=== PATIENT | male | born 1980 | race Caucasian/White ===

== ENCOUNTER 2021-01-02 00:51 | Emergency (ER) | payer MEDICAID ==
[~2021-01-02] VITALS: Ht 177.8 cm; Wt 72.6 kg
[2021-01-02 01:52] LABS: BASOPHILS % (AUTO) 0 % (0-10); BILIRUBIN,URINE NEGATIVE (NEGATIVE); CLARITY,URINE CLEAR; COLOR,URINE YELLOW; EOSINOPHILS # (AUTO) 0.1 10^3/uL (0.0-0.3); EOSINOPHILS % (AUTO) 1 % (0-10); GLUCOSE, URINE (UA) 1+ (NEGATIVE); HEMATOCRIT 46 % (40-54); HEMOGLOBIN 14.8 g/dL (13.3-17.7); KETONES,URINE NEGATIVE (NEGATIVE); LEUKOCYTE ESTERASE ,URINE NEGATIVE (NEGATIVE); LYMPHOCYTES # (AUTO) 3.3 10^3/uL (1.0-4.0); LYMPHOCYTES % (AUTO) 27 % (12-44); MEAN CORPUSCULAR HEMOGLOBIN 27 pg (25-34); MEAN CORPUSCULAR HGB CONC 33 g/dL (32-36); MEAN CORPUSCULAR VOLUME 83 fL (80-99); MEAN PLATELET VOLUME 10.6 fL (9.0-12.2); MONOCYTES # (AUTO) 1.1 10^3/uL (0.0-1.0); MONOCYTES % (AUTO) 9 % (0-12); NEUTROPHILS # (AUTO) 7.5 10^3/uL (1.8-7.8); NEUTROPHILS % (AUTO) 62 % (42-75); NITRITE,URINE NEGATIVE (NEGATIVE); PH,URINE 5.5 (5-9); PLATELET COUNT 330 10^3/uL (130-400); PROTEIN,URINE NEGATIVE (NEGATIVE); WHITE BLOOD COUNT 12.1 10^3/uL (4.3-11.0)
--- NOTE | 2021-01-02 01:55 | ED Back Pain ---
General Chief Complaint: Back Problems Stated Complaint: PAIN ON RT SIDE OF BACK Nursing Triage Note: TO ED VIA POV AND AMBULATORY TO ROOM 6 WITH C/O RIGHT FLANK PAIN THAT STARTED AT 2200 TONGIHT. Source of Information: Patient Exam Limitations: No Limitations (GEORGE MANN STUDENT) History of Present Illness Date Seen by Provider: Jan 02, 2021 Time Seen by Provider: 01:20 Initial Comments Deyvi is a 40 yo M here with a cc of R sided back pain. This pain started yesterday afternoon while he was laying in bed. Pain is described as a constant, pinching pain, rated as 10/10. Pain has not wavered in intensity since onset. Denies any radiation of pain. Has had this pain before, 2 years ago when he had a kidney stone. Pt is having nausea. Denies vomiting, diarrhea, constipation, hematuria, dysuria and frequency. Pt denies any trauma to area. Location: Paraspinous Muscles (T10-T11 area) Timing/Duration: 1 Day Severity: Moderate Pain/Injury Location: Back Radiation: Other (none) Method of Injury: Unknown Modifying Factors: Worse With Movement Associated Symptoms: No fever, No weakness (GEORGE MANN STUDENT) Allergies and Home Medications Allergies Coded Allergies: No Known Drug Allergies (Unverified , 01/02/21) Patient Home Medication List Home Medication List Reviewed: Yes (KARLI HAN MD) Cyclobenzaprine HCl (Cyclobenzaprine HCl) 10 Mg Tablet, 10 MG PO Q8H PRN for SPASMS Prescribed by: KARLI GILMORE on 01/02/21 0320 Hydrocodone/Acetaminophen (Hydrocodone-Acetamin 5-325 mg) 1 Each Tablet, 1 TAB PO Q4H PRN for PAIN-BREAKTHROUGH Prescribed by: KARLI GILMORE on 01/02/21 0323 Ondansetron (Ondansetron Odt) 4 Mg Tab.rapdis, 4 MG SL Q4H PRN for NAUSEA/VOMITING Prescribed by: KARLI GILMORE on 01/02/21 0320 Review of Systems Constitutional: No chills, No diaphoresis, No fever EENTM: No blurred vision Respiratory: No cough, No short of breath Cardiovascular: No chest pain, No palpitations Gastrointestinal: No abdominal pain, No constipation, No diarrhea; nausea; No vomiting Genitourinary: No dysuria, No frequency, No hematuria, No pain Musculoskeletal: back pain (R sided, T10-T11 area) Skin: change in color; No lesions; other Psychiatric/Neurological: No Symptoms Reported (GEORGE MANN) Past Gyqoqyc-Tzhqhk-Awhrax Hx Patient Social History Tobacco Use?: No Substance use?: No Alcohol Use?: No (GEORGE MANN) Past Medical History Surgery/Hospitalization HX: TO ED VIA POV AND AMBULATORY TO ROOM 6 WITH C/O RIGHT FLANK PAIN. STATES TROUBLE WITH URINATION. HX OF KIDNEY STONE 2 YEARS AGO. Surgeries: Yes Appendectomy Respiratory: No Cardiac: No Endocrine: Yes Diabetes, Non-Insulin dep Psychosocial: No (GEORGE MANN) Family Medical History No Pertinent Family Hx (GEORGE MANN) Physical Exam Vital Signs Vital Signs - First Documented 01/02/21 00:57 Temp 35.8 Pulse 61 Resp 18 B/P (MAP) 162/74 (103) Pulse Ox 99 O2 Delivery Room Air (KARLI HAN MD) Vital Signs Capillary Refill : Less Than 3 Seconds (GEORGE MANN) Height, Weight, BMI Height: '" Weight: lbs. oz. kg; 22.00 BMI Method: General Appearance: WD/WN, Moderate Distress HEENT: No Scleral Icterus (R) Neck: Full Range of Motion, Non Tender; No Lymphadenopathy (L), No Lymphadenopathy (R) Cardiovascular: Regular Rate, Rhythm, No Murmur, Normal Peripheral Pulses Respiratory: Chest Non Tender, Lungs Clear Gastrointestinal: Normal Bowel Sounds, Non Tender, Soft Back: CVA Tenderness (R), Other (no ecchymosis, scars, or cuts over area of pain) Extremity: Normal Capillary Refill Neurologic/Psychiatric: Alert, Oriented x3, Normal Mood/Affect Skin: Normal Color, Warm/Dry; No Diaphoresis, No Ecchymosis, No Pallor (GEORGE MANN) Progress/Results/Core Measures Results/Orders Lab Results Laboratory Tests Test 01/02/21 01:04 Range/Units White Blood Count 12.1 H 4.3-11.0 10^3/uL Red Blood Count 5.46 4.30-5.52 10^6/uL Hemoglobin 14.8 13.3-17.7 g/dL Hematocrit 46 40-54 % Mean Corpuscular Volume 83 80-99 fL Mean Corpuscular Hemoglobin 27 25-34 pg Mean Corpuscular Hemoglobin Concent 33 32-36 g/dL Red Cell Distribution Width 12.7 10.0-14.5 % Platelet Count 330 130-400 10^3/uL Mean Platelet Volume 10.6 9.0-12.2 fL Immature Granulocyte % (Auto) 0 % Neutrophils (%) (Auto) 62 42-75 % Lymphocytes (%) (Auto) 27 12-44 % Monocytes (%) (Auto) 9 0-12 % Eosinophils (%) (Auto) 1 0-10 % Basophils (%) (Auto) 0 0-10 % Neutrophils # (Auto) 7.5 1.8-7.8 10^3/uL Lymphocytes # (Auto) 3.3 1.0-4.0 10^3/uL Monocytes # (Auto) 1.1 H 0.0-1.0 10^3/uL Eosinophils # (Auto) 0.1 0.0-0.3 10^3/uL Basophils # (Auto) 0.0 0.0-0.1 10^3/uL Immature Granulocyte # (Auto) 0.1 0.0-0.1 10^3/uL Urine Color YELLOW Urine Clarity CLEAR Urine pH 5.5 5-9 Urine Specific [place] >=1.030 1.016-1.022 Urine Protein NEGATIVE NEGATIVE Urine Glucose (UA) 1+ H NEGATIVE Urine Ketones NEGATIVE NEGATIVE Urine Nitrite NEGATIVE NEGATIVE Urine Bilirubin NEGATIVE NEGATIVE Urine Urobilinogen 0.2 < = 1.0 MG/DL Urine Leukocyte Esterase NEGATIVE NEGATIVE Urine RBC (Auto) NEGATIVE NEGATIVE Urine RBC RARE /HPF Urine WBC 0-2 /HPF Urine Crystals NONE /LPF Urine Bacteria TRACE /HPF Urine Casts NONE /LPF Urine Mucus MODERATE H /LPF Urine Culture Indicated NO Sodium Level 134 L 135-145 MMOL/L Potassium Level 3.5 L 3.6-5.0 MMOL/L Chloride Level 98 98-107 MMOL/L Carbon Dioxide Level 25 21-32 MMOL/L Anion Gap 11 5-14 MMOL/L Blood Urea Nitrogen 15 7-18 MG/DL Creatinine 1.07 0.60-1.30 MG/DL Estimat Glomerular Filtration Rate 76 BUN/Creatinine Ratio 14 Glucose Level 227 H 70-105 MG/DL Calcium Level 9.9 8.5-10.1 MG/DL Corrected Calcium 8.5-10.1 MG/DL Total Bilirubin 0.9 0.1-1.0 MG/DL Aspartate Amino Transf (AST/SGOT) 23 5-34 U/L Alanine Aminotransferase (ALT/SGPT) 38 0-55 U/L Alkaline Phosphatase 94 40-136 U/L Total Protein 7.8 6.4-8.2 GM/DL Albumin 4.7 H 3.2-4.5 GM/DL (KARLI HAN MD) My Orders Orders - KARLI HAN MD Cbc With Automated Diff (01/02/21 01:46) Comprehensive Metabolic Panel (01/02/21 01:46) Ua Culture If Indicated (01/02/21 01:46) Ed Iv/Invasive Line Start (01/02/21 01:46) Lactated Ringers (Lr 1000 Ml Iv Solution (01/02/21 02:00) Ketorolac Injection (Toradol Injection) (01/02/21 02:00) Ondansetron Injection (Zofran Injectio (01/02/21 02:00) Orphenadrine Inj (Ed Only) (Norflex Inje (01/02/21 02:30) Hydrocodone/Apap 5/325 Tablet (Lortab 5 (01/02/21 03:15) (KARLI HAN MD) Medications Given in ED (KARLI HAN MD) Vital Signs/I&O 01/02/21 01/02/21 00:57 03:35 Temp 35.8 35.8 Pulse 61 67 Resp 18 16 B/P (MAP) 162/74 (103) 148/67 Pulse Ox 99 99 O2 Delivery Room Air Room Air (KARLI HAN MD) Blood Pressure Mean: 103 Progress Progress Note : Progress Note Patient was treated with IV fluids, Toradol, and Zofran. Exam seem to be more consistent with musculoskeletal pain with tension and tenderness in the paraspinous muscles of the right lower back. There was no blood in his urine. Patient was offered KUB or CT scan for further evaluation of ureteral stone, es pecially since Norflex did not improve the pain at all. After discussion of risks and benefits, patient decides to treat symptomatically and not have any imaging performed at this time. He was discharged with medications. See discharge instructions. (KARLI HAN MD) Departure Impression Primary Impression: Back pain Qualified Codes: M54.5 - Low back pain Disposition: 01 HOME, SELF-CARE Condition: Improved Departure-Patient Inst. Decision time for Depature: 03:08 (KARLI HAN MD) Referrals: NO,LOCAL PHYSICIAN (PCP/Family) Primary Care Physician Patient Instructions: Kidney Stones in Adults, Low Back Pain (DC) Add. Discharge Instructions: Drink plenty of clear liquids to stay well-hydrated. Strain your urine and keep any stones collected to bring to your follow-up appointment. Follow-up at [facility] (the [facility]) as soon as possible.. For primary pain control you may take ibuprofen up to 600 mg every 6 hours as needed. Add the hydrocodone as prescribed for pain not controlled by ibuprofen. Use Zofran as prescribed for nausea and vomiting. For muscle tension or spasm you may use the cyclobenzaprine as prescribed. Return to care if you have worsening symptoms or symptoms not controlled by your medications. Call with questions or concerns. All discharge instructions reviewed with patient and/or family. Voiced understanding. Scripts Ondansetron (Ondansetron Odt) 4 Mg Tab.rapdis 4 MG SL Q4H PRN for NAUSEA/VOMITING, #10 TAB Prov: KARLI HAN MD 01/02/21 Cyclobenzaprine HCl (Cyclobenzaprine HCl) 10 Mg Tablet 10 MG PO Q8H PRN for SPASMS, #10 TAB 0 Refills Prov: KARLI HAN MD 01/02/21 Hydrocodone/Acetaminophen (Hydrocodone-Acetamin 5-325 mg) 1 Each Tablet 1 TAB PO Q4H PRN for PAIN-BREAKTHROUGH, #10 TAB Prov: KARLI HAN MD 01/02/21 Medical Student Attestation and Attending Note: I have personally interviewed and examined this patient along with George Mann MS4. I have reviewed student documentation including history, physical, and assessments. I agree with the documentation except where otherwise noted. Exam: General: Alert, oriented, no acute distress, well developed HEENT: Normocephalic and atraumatic Heart: Regular rate and rhythm without murmur Lungs: Clear to auscultation bilaterally with normal effort Abdomen: Soft, nontender, nondistended, normal bowel sounds Neuropsych: Alert, oriented, no focal deficits Skin: Warm and dry without rashes Back: Tenderness in the mid lumbar region of the paraspinous muscles on the right (KARLI HAN MD) GEORGE MANN MED STUDENT Jan 02, 2021 01:55 KARLI HAN MD Jan 02, 2021 03:16
[2021-01-02 01:59] LABS: BACTERIA,URINE TRACE /HPF; RBC,URINE RARE /HPF; WBC,URINE 0-2 /HPF
[2021-01-02] MEDS ORDERED: KETOROLAC 30 MG/ML VIAL IVP ONE (02:00)
[2021-01-02] MEDS ORDERED: LACTATED RINGERS 1,000 ML IV ONE (02:00)
[2021-01-02] MEDS ORDERED: ONDANSETRON 4 MG/2 ML (SDV) Z0FRAN IVP ONE (02:00)
[2021-01-02 02:04] LABS: ALBUMIN 4.7 GM/DL (3.2-4.5); CHLORIDE 98 MMOL/L (98-107); POTASSIUM 3.5 MMOL/L (3.6-5.0); SODIUM 134 MMOL/L (135-145)
[2021-01-02 02:05] LABS: CALCIUM 9.9 MG/DL (8.5-10.1)
[2021-01-02 02:06] LABS: GLUCOSE 227 MG/DL (70-105); TOTAL PROTEIN 7.8 GM/DL (6.4-8.2)
[2021-01-02 02:07] LABS: CARBON DIOXIDE 25 MMOL/L (21-32)
[2021-01-02 02:08] LABS: BILIRUBIN,TOTAL 0.9 MG/DL (0.1-1.0)
[2021-01-02 02:09] LABS: ALKALINE PHOSPHATASE 94 U/L (40-136)
[2021-01-02 02:10] LABS: CREATININE SERUM 1.07 MG/DL (0.60-1.30); GFR ESTIMATED 76
[2021-01-02 02:11] LABS: BUN/CREATININE RATIO 14
[2021-01-02 02:13] LABS: ALANINE AMINOTRANSFERASE 38 U/L (0-55)
[2021-01-02] MEDS ORDERED: ORPHENADRINE 60 MG/2 ML (NORFLEX) AMP (ED ONLY) IV ONE (02:30)
[2021-01-02] MEDS ORDERED: HYDROcodone/APAP 5 MG/325 MG (LORTAB) TAB PO ONE (03:15)
[2021-01-02] MEDS ORDERED: ONDA4TAB11 SL (03:20)
[2021-01-02] MEDS ORDERED: CYCL10TA9 PO (03:20)
[2021-01-02] MEDS ORDERED: ACHD5005 PO (03:20)
[2021-01-02 03:35] VITALS: BP 148/67
== END 2021-01-02 03:27 | disposition home or self-care (01) ==
LOC: ER 00:57
DX: M54.9 Dorsalgia, unspecified (principal); E11.9 Type 2 diabetes mellitus without complications
CPT/HCPCS: 36415; 80053; 81000; 85025

== ENCOUNTER 2021-09-22 20:39 | Emergency (ER) | payer MEDICAID ==
[~2021-09-22] VITALS: Ht 180.3 cm; Wt 81.6 kg
[~2021-09-22 20:39] MED LIST: ACHD5005 PO; CYCL10TA25 PO; ONDA4TAB11 SL
--- NOTE | 2021-09-22 21:54 | ED Headache ---
General Chief Complaint: Head/Cervical Problems Stated Complaint: HEAD PAIN - DIZZY Nursing Triage Note: Pt ambulatory to ED c/o headache onset Thursday. c/o pain on left side of head only, denies other symptoms History of Present Illness Date Seen by Provider: Sep 22, 2021 Time Seen by Provider: 21:30 Initial Comments PT ARRIVES VIA POV FROM HOME WITH MULTITUDE OF OTHER FAMILY MEMBERS 5 Y.O. CHILD IS ALSO BEING SEEN FOR EYE REDNESS. PT C/O HEADACHE SINCE THURSDAY PAIN IS ON LEFT SIDE OF HEAD HAS NOT TAKEN ANYTHING FOR HEADACHE SYMPTOMS NO DIFFERENT TONIGHT IN ANY WAY ( THURSDAY NIGHT) HAS NOT SOUGHT CARE UNTIL TONIGHT. PCP: JULIAN Allergies and Home Medications Allergies Coded Allergies: No Known Drug Allergies (Unverified , 01/02/21) Patient Home Medication List Cyclobenzaprine HCl (Cyclobenzaprine HCl) 10 Mg Tablet, 10 MG PO Q8H PRN for SPASMS Prescribed by: KARLI GILMORE on 01/02/21 0320 Hydrocodone/Acetaminophen (Hydrocodone-Acetamin 5-325 mg) 1 Each Tablet, 1 TAB PO Q4H PRN for PAIN-BREAKTHROUGH Prescribed by: KARLI GILMORE on 01/02/21 0323 Ondansetron (Ondansetron Odt) 4 Mg Tab.rapdis, 4 MG SL Q4H PRN for NAUSEA/VOMITING Prescribed by: KARLI GILMORE on 01/02/21 0320 Review of Systems Review of Systems Constitutional: no symptoms reported Eyes: No Symptoms Reported Ears, Nose, Mouth, Throat: no symptoms reported Respiratory: no symptoms reported Cardiovascular: no symptoms reported Gastrointestinal: no symptoms reported Genitourinary: no symptoms reported Musculoskeletal: no symptoms reported Skin: no symptoms reported Psychiatric/Neurological: See HPI, Headache Past Mgrxzil-Umfvcl-Ppdzva Hx Patient Social History Tobacco Use?: No Substance use?: No Alcohol Use?: No Immunizations Up To Date Influenza Vaccine Up-to-Date: Yes; Up-to-Date COVID19 Vaccine Cma Or Lpn: unsure of dates has had vacc Past Medical History Surgeries: Yes Appendectomy Respiratory: No Cardiac: No Neurological: No Genitourinary: Yes Kidney Stones Gastrointestinal: No Musculoskeletal: No Endocrine: Yes Diabetes, Non-Insulin dep HEENT: No Cancer: No Psychosocial: No Integumentary: No Blood Disorders: No Family Medical History No Pertinent Family Hx Physical Exam Vital Signs Vital Signs - First Documented 09/22/21 20:58 Temp 36.9 Pulse 72 Resp 17 B/P (MAP) 117/79 (92) Pulse Ox 97 O2 Delivery Room Air Capillary Refill : Less Than 3 Seconds Height, Weight, BMI Height: '" Weight: lbs. oz. kg; 25.00 BMI Method: General Appearance: WD/WN, no apparent distress, other (DOES NOT APPEAR ILL OR TO BE IN ANY DISCOMFORT OR DISTRESS) HEENT: PERRL/EOMI, normal ENT inspection, TMs normal, pharynx normal Neck: normal inspection Cardiovascular: regular rate, rhythm, no murmur Respiratory: normal breath sounds Gastrointestinal: non tender, soft Back: normal inspection, no CVA tenderness Extremities: normal inspection Psychiatric: alert, oriented x 3 Crainal Nerves: normal hearing, normal speech, PERRL Coordination/Gait: normal finger to nose, normal gait, negative Romberg's sign Motor/Sensory: no motor deficit, no sensory deficit, no pronator drift Skin: normal color (PT IS ), warm/dry; No rash Progress/Results/Core Measures Results/Orders Lab Results Laboratory Tests Test 09/22/21 21:41 09/22/21 22:49 Range/Units Influenza Type A (RT-PCR) Not Detected Not Detecte Influenza Type B (RT-PCR) Not Detected Not Detecte SARS-CoV-2 RNA (RT-PCR) Not Detected Not Detecte Glucometer 166 H 70-110 MG/DL My Orders Orders - SALMA MANRIQUEZ DO Mariid 19 Inhouse Test (09/22/21 21:33) Influenza A And B By Pcr (09/22/21 21:33) Isolation Central Supply Req (09/22/21 21:33) Accucheck Stat ONCE (09/22/21 22:25) Ct Head Wo (09/22/21 22:25) Vital Signs/I&O 09/22/21 09/22/21 20:58 23:27 Temp 36.9 36.9 Pulse 72 72 Resp 17 17 B/P (MAP) 117/79 (92) 117/79 Pulse Ox 97 97 O2 Delivery Room Air Room Air Blood Pressure Mean: 92 Departure Impression Primary Impression: Left-sided headache Additional Impression: NIDDM Disposition: 01 HOME, SELF-CARE Condition: Stable Departure-Patient Inst. Decision time for Depature: 23:04 Referrals: [facility] (PCP/Family) Primary Care Physician Patient Instructions: Headache, Adult Add. Discharge Instructions: TYLENOL 1 GRAM + MOTRIN 800 MG 4 TIMES A DAY FOR HEADACHE LOTS OF FLUIDS FOLLOW UP WITH YOUR DR IN 3-4 DAYS IF NO BETTER RETURN TO ER IF WORSE All discharge instructions reviewed with patient and/or family. Voiced understanding. SALMA MANRIQUEZ DO Sep 22, 2021 21:54
--- NOTE | 2021-09-22 22:48 | Diagnostic Imaging Report ---
PROCEDURE: CT head without contrast. TECHNIQUE: Multiple contiguous axial images were obtained through the brain without the use of intravenous contrast. Auto Exposure Controls were utilized during the CT exam to meet ALARA standards for radiation dose reduction. INDICATION: Left-sided headache. FINDINGS: The ventricles are normal in size, shape and position. There are no masses or hemorrhages. There are no extra-axial fluid collections. Paranasal sinuses are clear. IMPRESSION: Negative CT head. Dictated by: Dictated on workstation # [id number]
[2021-09-22 23:27] VITALS: BP 117/79
== END 2021-09-22 23:27 | disposition home or self-care (01) ==
LOC: EDUNIT# 20:39 → ER 20:40
DX: R51.9 Headache, unspecified (principal); E11.9 Type 2 diabetes mellitus without complications; Z20.822 Contact with and (suspected) exposure to COVID-19
CPT/HCPCS: 70450; 82947; 87636

== ENCOUNTER 2022-03-23 11:40 | Emergency (ER) | payer MEDICAID ==
[~2022-03-23] VITALS: Ht 182 cm; Wt 82.0 kg
[2022-03-23] MEDS ORDERED: IBUPROFEN 600 MG (MOTRIN) TAB PO ONE (12:45)
--- NOTE | 2022-03-23 13:05 | ED General ---
General Chief Complaint: COVID19 Suspect/Confirmed Stated Complaint: FEVER/HEADACHE/BODYACHES Nursing Triage Note: PT STATES HEADACHE, FEVER, SORE THROAT AND BODY ACHES SINCE THURSDAY, NO MEDICATION TAKEN, IS ALSO SICK Source of Information: Patient Exam Limitations: No Limitations History of Present Illness Date Seen by Provider: Mar 23, 2022 Time Seen by Provider: 12:20 Initial Comments Patient is a 41-year-old male who presents to the emergency department with headache, fever, sore throat, body aches that began Thursday. He has not taken any medications for the symptoms. His is also been sick recently. Patient denies any chest pain or significant shortness of breath. States cough is nonproductive. Denies any nausea/vomiting/diarrhea. Allergies and Home Medications Allergies Coded Allergies: No Known Drug Allergies (Unverified , 01/02/21) Patient Home Medication List Home Medication List Reviewed: Yes Cyclobenzaprine HCl (Cyclobenzaprine HCl) 10 Mg Tablet, 10 MG PO Q8H PRN for SPASMS Prescribed by: KARLI GILMORE on 01/02/21 0320 Hydrocodone/Acetaminophen (Hydrocodone-Acetamin 5-325 mg) 1 Each Tablet, 1 TAB PO Q4H PRN for PAIN-BREAKTHROUGH Prescribed by: KARLI GILMORE on 01/02/21 0323 Ibuprofen (Ibuprofen) 600 Mg Tablet, 600 MG PO Q6H PRN for FEVER Prescribed by: Kika Shen on 03/23/22 1324 Last Action: New Order Ondansetron (Ondansetron Odt) 4 Mg Tab.rapdis, 4 MG SL Q4H PRN for NAUSEA/VOMITING Prescribed by: KARLI GILMORE on 01/02/21 0320 Review of Systems Review of Systems Constitutional: see HPI, fever, malaise EENTM: no symptoms reported Respiratory: no symptoms reported Cardiovascular: no symptoms reported Gastrointestinal: no symptoms reported Genitourinary: no symptoms reported Musculoskeletal: no symptoms reported Skin: no symptoms reported Psychiatric/Neurological: No Symptoms Reported Hematologic/Lymphatic: No Symptoms Reported Immunological/Allergic: no symptoms reported Past Bapyqji-Zueemc-Knfzxj Hx Patient Social History Tobacco Use?: No Substance use?: No Alcohol Use?: No Past Medical History Surgery/Hospitalization HX: HX OF KIDNEY STONE, DIABETIC TYPE II, APPENDECTOMY Surgeries: Yes Appendectomy Respiratory: No Cardiac: No Neurological: No Genitourinary: Yes Kidney Stones Gastrointestinal: No Musculoskeletal: No Endocrine: Yes Diabetes, Non-Insulin dep HEENT: No Cancer: No Psychosocial: No Integumentary: No Blood Disorders: No Family Medical History No Pertinent Family Hx Physical Exam Vital Signs Vital Signs - First Documented 03/23/22 12:17 Temp 37.2 Pulse 101 Resp 20 B/P (MAP) 120/74 (89) Pulse Ox 96 O2 Delivery Room Air Capillary Refill : Less Than 3 Seconds Height, Weight, BMI Height: '" Weight: lbs. oz. kg; 24.00 BMI Method: General Appearance: No Apparent Distress, WD/WN HEENT: TMs Normal, Normal ENT Inspection, Pharynx Normal Neck: Non Tender, Supple Respiratory: Chest Non Tender, Decreased Breath Sounds, Expiration, Respiratory Distress, Wheezing Cardiovascular: Regular Rate, Rhythm Gastrointestinal: Non Tender, Soft Extremity: Non Tender, No Calf Tenderness Neurologic/Psychiatric: Alert, Oriented x3, No Motor/Sensory Deficits, Normal Mood/Affect Skin: Normal Color, Warm/Dry Progress/Results/Core Measures Suspected Sepsis SIRS Temperature: Pulse: 101 Respiratory Rate: 20 Blood Pressure 120 /74 Mean: 89 Results/Orders Lab Results Laboratory Tests Test 03/23/22 12:25 Range/Units Influenza Type A (RT-PCR) Detected H Not Detecte Influenza Type B (RT-PCR) Not Detected Not Detecte SARS-CoV-2 RNA (RT-PCR) Not Detected Not Detecte Group A Streptococcus Screen NEGATIVE NEGATIVE My Orders Orders - KIKA SHEN [employer]ILD[employer] DES[employer] Covid 19 Inhouse Test (03/23/22 12:32) Influenza A And B By Pcr (03/23/22 12:32) Isolation Central Supply Req (03/23/22 12:32) Ibuprofen Tablet (Motrin Tablet) (03/23/22 12:45) Rapid Strep A Screen (03/23/22 13:18) Medications Given in ED Current Medications Medications Dose Ordered Sig/Belinda Route Start Time Stop Time Status Last Admin Dose Admin Ibuprofen 600 mg ONCE ONCE PO 03/23/22 12:45 03/23/22 12:46 DC 03/23/22 12:46 600 MG Vital Signs/I&O 03/23/22 03/23/22 03/23/22 12:17 12:31 13:26 Temp 37.2 Pulse 101 95 Resp 20 B/P (MAP) 120/74 (89) 109/72 Pulse Ox 96 95 O2 Delivery Room Air Room Air Room Air Capillary Refill : Less Than 3 Seconds Blood Pressure Mean: 89 Progress Note : Progress Note Patient is nontoxic and well-hydrated on exam. No adventitious lung sounds or increased work of breathing noted. No nuchal rigidity appreciated. Vital signs are reassuring. Flu test positive for influenza A. Discussed supportive care and anticipatory guidance. Follow-up with PCP. Return precautions for urgent symptomology discussed. Patient verbalized understanding. Departure Impression Primary Impression: Influenza A Disposition: HOME, SELF-CARE Condition: Stable Departure-Patient Inst. Decision time for Depature: 13:20 Referrals: [facility] (PCP/Family) Primary Care Physician Patient Instructions: Flu, Adult (DC) Scripts Ibuprofen (Ibuprofen) 600 Mg Tablet 600 MG PO Q6H PRN for FEVER, #20 TAB 0 Refills Prov: KIKA SHEN APRN 03/23/22 KIKA SHEN APRN Mar 23, 2022 13:05
[2022-03-23] MEDS ORDERED: IBUP-1773 PO (13:24)
[2022-03-23 13:26] VITALS: BP 109/72
== END 2022-03-23 13:27 | disposition home or self-care (01) ==
LOC: EDUNIT# 11:40 → ER 11:42
DX: J10.1 Influenza due to other identified influenza virus with other respiratory manifestations (principal); Z20.822 Contact with and (suspected) exposure to COVID-19
CPT/HCPCS: 87430; 87636; 99283